=== PATIENT | female | born 1965 | race Caucasian/White ===

== ENCOUNTER → 2021-06-06 | Outpatient (CLI) | payer OTHER ==
[~2021-06-06] MED LIST: ASPIRIN EC81 MG PO; ATIVAN 1MG TABLE1 MG PO; ATORVASTATIN CA80 MG PO; BUTALB-CAFF-AC1 EACH PO; CLOPIDOGREL75 MG PO; COZAAR 25MG TAB25 MG PO; CYCLOBENZAPRINE10 MG PO; ELAVIL 10 MG TA10 MG PO; FENOFIBRATE145 MG PO; FLUTICASONE-SA1 EAC4 INH; GLUCOPHAGE XR500 M1 PO; IBU800 MG PO; PAROXETINE HCL20 MG PO; PROTONIX 40 MG40 M1 PO; TENORMIN 50 MG50 MG PO; TYLENOL325 MG PO; VASCEPA1 GM PO; VENTOLIN HFA 66.7 GM INH; VITAMIN D250 MCG PO
== END ==
LOC: HEART 5 12:41
DX: I25.10 Atherosclerotic heart disease of native coronary artery without angina pectoris (principal); Z98.61 Coronary angioplasty status
CPT/HCPCS: 93306